=== PATIENT | female | born 1970 | race Caucasian/White ===

== ENCOUNTER 2020-09-09 22:08 | Emergency (ER) | payer BC, SELFPAY ==
--- NOTE | ~2020-09-09 | CT_ITS ---
EXAMINATION: CT abdomen pelvis w con INDICATION: Left lower quadrant pain TECHNIQUE: Computed tomographic images of the abdomen and pelvis were obtained after the administrati on of 100 cc of Omnipaque 350 intravenous contrast. The dose-length product (DLP) was 260.79 mGy-cm. Automated exposure control and iterative reconstruction technique were employed. COMPARISON: None available FINDINGS: The lung bases are clear. The heart size is normal. There is a large hiatal hernia containi ng the entire stomach. Surgical changes of the stomach likely reflect gastric bypass. Bilateral breas t implants are noted. The gallbladder is surgically absent. There is mild enlargement of the common b ile duct and central intrahepatic ducts which is likely due to post cholecystectomy state. The liver, spleen, pancreas, and adrenal glands are normal. The kidneys are unremarkable. Colonic diverticulosi s is noted. There is subtle inflammatory change of the left pelvis. There is a small amount of fluid in the endometrium. A right adnexal cyst measures up to 3.6 cm. There are phleboliths of the pelvis. A 1.8 x 1.1 cm area of fluid attenuation to the right of midline in association with the labia majora has the appearance of a Bartholin gland cyst. The appendix is normal. There is mild lumbar spondylos is. IMPRESSION: 1. Diverticulosis with possible mild sigmoid diverticulitis. 2. Large hiatal hernia with intrathoracic stomach. 3. Right adnexal cyst measuring up to 3.6 cm and small amount of fluid in the endometrium. This would be within normal limits for a reproductive age female however it the patient is postmenopausal, furt her evaluation with pelvic ultrasound is recommended. Reviewed, dictated and finalized at location A. IMPRESSION: 1. Diverticulosis with possible mild sigmoid diverticulitis. 2. Large hiatal hernia with intrathoracic stomach. 3. Right adnexal cyst measuring up to 3.6 cm and small amount of fluid in the e ndometrium. This would be within normal limits for a reproductive age female ho wever it the patient is postmenopausal, further evaluation with pelvic ultrasou nd is recommended.
[2020-09-09 22:09] VITALS: BP 125/66; PULSE 124; RESP 20; TEMP 36.3; O2SAT 99
[2020-09-09 22:48] LABS: Basophils Absolute Auto 0.2 K/mm3 (0.0-0.1); Basophils Percent Auto 1.1 % (0.2-1.2); Eosinophils Absolute Auto 0.1 K/mm3 (0-0.3); Hematocrit 33.6 % (37.0-47.0); Hemoglobin 10.3 g/dL (12.0-15.0); Immature Granulocyte Absolute 0.06 K/mm3 (0.00-0.031); Immature Granulocyte Percent A 0.4 % (0-0.5); Lymphocytes Absolute Auto 2.26 K/mm3 (0.9-3.2); Lymphocytes Percent Auto 16.4 % (18.3-44.2); Mean Corpuscular HGB Conc 30.7 g/dl (32-36); Mean Corpuscular Hemoglobin 23.6 pg (26-34); Mean Corpuscular Volume 76.9 fl (80-100); Mean Platelet Volume 9.9 fl (7.4-10.4); Neutrophils Absolute Auto 10.2 K/mm3 (1.3-6.7); Neutrophils Percent Auto 74.1 % (45.5-73.1); Platelet Count Result 385 k/mm3 (150-375); Red Blood Count 4.37 M/mm3 (4.2-5.4); Red Cell Distribution Width 18.2 % (11.5-14.5); White Blood Count 13.8 K/mm3 (4.5-10.0)
[2020-09-09] MEDS: MORPHINE SULFATE (*CRX) 4 MG/ML INJ IV PUSH (22:56)
[2020-09-09] MEDS: ONDANSETRON INJ 4 MG/2 ML VIAL IV PUSH (22:56)
[2020-09-09] MEDS: SODIUM CHLORIDE 0.9% IV 1,000 ML 999 ML IV CONT (22:56)
--- NOTE | 2020-09-09 23:00 | ED.ABDPAIN ---
HPI - Abdominal Pain General Chief Complaint: Abdominal Pain Stated Complaint: problems with my stomach for the last couple weeks Time Seen by Provider: 09/09/20 22:20 History of Present Illness HPI narrative: Patient is a 49-year-old female who presents ER with abdominal discomfort lasting for over a week. Initially she was having feeling that she needs to defecate but cannot go. Over the last few days she has developed persistent left lower quadrant abdominal pain with occasional spikes in her pain. Tonight was more severe. She reports diarrhea today as well. No fevers or chills or sweats. No chest pain or chest pressure. No nausea or vomiting. Related Data Allergies Allergy/AdvReac Type Severity Reaction Status Date / Time No Known Allergies Allergy Verified 09/09/20 22:20 Review of Systems Review of Systems: All systems reviewed & are unremarkable except as noted in HPI and below Constitutional: Constitutional: Denies chills, Denies fever(s) and Denies weakness Gastrointestinal: Gastrointestinal: Reports abdominal pain, Reports diarrhea, Denies nausea and Denies vomiting Genitourinary: Genitourinary: Denies nocturia, Denies dysuria and Denies flank pain PMFSH Past Medical History Medical History (Updated 09/10/20 @ 01:02 by Jamil Moya MD) Healthy female adult Surgical History Surgical History (Updated 09/09/20 @ 23:01 by Jamil Moya MD) H/O breast augmentation History of section History of cholecystectomy Social History Social History (Updated 09/09/20 @ 23:01 by Jamil Moya MD) Smoking status: Current every day smoker Alcohol intake: current Exam Narrative: Exam Narrative: GENERAL: Well-appearing, well-nourished, and in no acute distress. HEAD: Normocephalic, atraumatic. CHEST: Clear to auscultation. No respiratory distress. HEART: Tachycardic regular. Normal peripheral pulses. ABDOMEN: Soft, tender palpation left mid abdomen with guarding, nondistended, normal active bowel sounds. EXTREMITIES: Normal range of motion. No edema. SKIN: Warm, dry, no rash. NEURO: Alert and oriented x3. PSYCH: Normal mood and affect. Course Course Emergency Course: Patient resting comfortably. Still tachycardic. Will give second liter of fluid. She is aware of diagnosis and treatment plan. I would like to put her on Cipro and Flagyl for her colitis as I think is likely infectious given how longstanding it is. Also discussed with the patient and her distended endometrium and recommended that she follow-up with gynecology for further evaluation to rule out any cancerous process. She verbalized understanding of this. Vital Signs Vital signs: Vital Signs Temperature 97.3 F L 09/09/20 22:09 Pulse Rate 124 H 09/09/20 22:09 Respiratory Rate 20 09/09/20 22:09 Blood Pressure 125/66 09/09/20 22:09 Pulse Oximetry 99 09/09/20 22:09 Temperature 97.3 F L 09/09/20 22:09 Pulse Rate 100 09/09/20 23:51 Respiratory Rate 18 09/09/20 23:51 Blood Pressure 136/81 09/09/20 23:51 Pulse Oximetry 100 09/09/20 23:51 MDM - Abdominal Pain Lab Data Result diagrams: 09/09/20 22:28 09/09/20 22:28 Labs: Lab Results 09/09/20 09/09/20 Range/Units 22:28 22:28 WBC 13.8 H (4.5-10.0) K/mm3 RBC 4.37 (4.2-5.4) M/mm3 Hgb 10.3 L (12.0-15.0) g/dL Hct 33.6 L (37.0-47.0) % MCV 76.9 L (80-100) fl MCH 23.6 L (26-34) pg MCHC 30.7 L (32-36) g/dl RDW 18.2 H (11.5-14.5) % Plt Count 385 H (150-375) k/mm3 MPV 9.9 (7.4-10.4) fl Immature Gran % (Auto) 0.4 (0-0.5) % Neut % (Auto) 74.1 H (45.5-73.1) % Lymph % (Auto) 16.4 L (18.3-44.2) % [place] % (Auto) 7.0 (2.6-8.5) % Eos % (Auto) 1.0 (0-4.4) % Baso % (Auto) 1.1 (0.2-1.2) % Lymph # (Auto) 2.26 (0.9-3.2) K/mm3 [place] # (Auto) 1.0 H (0.1-0.6) K/mm3 Eos # (Auto) 0.1 (0-0.3) K/mm3 Baso # (Auto) 0.2 H (0.0-0.1) K/mm3 Abs Immat Gran (aut
[2020-09-09 23:01] LABS: Anion Gap 11 mmol/L (8-16); Blood Urea Nitrogen 9 mg/dL (7-17); Calcium 9.4 mg/dL (8.4-10.2); Carbon Dioxide 20 mmol/L (22-30); Chloride 105 mmol/L (98-107); Estimated CRCL calculation 66 ml/min; Estimated Glomerular Filt Rate > 60; Glucose 125 mg/dL (65-105); Sodium 136 mmol/L (137-145)
[2020-09-09 23:51] VITALS: BP 136/81; PULSE 100; RESP 18; O2SAT 100
[2020-09-10] MEDS: metroNIDAZOLE 250 MG TABLET 500 MG PO (01:02)
[2020-09-10] MEDS: CIPROFLOXACIN 500 MG TAB PO (01:02)
[2020-09-10] MEDS: SODIUM CHLORIDE 0.9% IV 1,000 ML 999 ML IV CONT (01:03)
== END 2020-09-10 01:50 | disposition home or self-care (01) ==
PROVIDERS: Emergency Provider Emergency Medicine
DX: K52.9 Noninfective gastroenteritis and colitis, unspecified (principal); N85.8 Other specified noninflammatory disorders of uterus
CPT/HCPCS: 36415; 74177; 80048; 85025; 96361; 96374; 96375; 99284; A9270; J2270; J2405; J7030; Q9967

== ENCOUNTER 2020-10-29 14:09 | Outpatient (CLI) | payer BC, SELFPAY ==
--- NOTE | ~2020-10-29 | US_ITS ---
EXAMINATION: US pelvic complete w TV EXAM DATE: 10/29/2020 15:02 INDICATION: N83.209 - Unspecified ovarian cyst, unspecified side . TECHNIQUE: Pelvic transabdominal and transvaginal sonogram was performed. There are multiple graysca le and Doppler images available for interpretation. Correlation is made to CT abdomen pelvis 09/09/2020 . FINDINGS: Uterus measures 4.1 x 4.3 x 7.2 cm, with poorly visualized endometrial stripe, and slightl y hyperechoic ill-defined region in the central aspect of the fundus measuring about 2 cm. Could be a bnormally thickened endometrium or a fibroid. There is a nabothian cyst. There is no free pelvic fl uid. Right adnexa: The ovary measures 2.7 x 3.2 x 2.6 cm and is morphologically normal. Ovarian vascular f low confirmed. Left adnexa: The ovary measures 2.5 x 2.4 x 1.4 cm and is morphologically normal. Ovarian vascular fl ow confirmed. IMPRESSION: 1. Ill-defined endometrial region, could be from fibroid or abnormal thickening; endometrial cancer not excludable sonographically. Could consider 6 week follow-up exam or histologic correlation. 2. Unremarkable ovaries. Reviewed, dictated and finalized at location A. IMPRESSION: 1. Ill-defined endometrial region, could be from fibroid or abnormal thickenin g; endometrial cancer not excludable sonographically. Could consider 6 week f ollow-up exam or histologic correlation. 2. Unremarkable ovaries.
== END 2020-10-29 14:10 | disposition home or self-care (01) ==
PROVIDERS: Visit Provider Obstetrics & Gynecology
DX: N83.209 Unspecified ovarian cyst, unspecified side (principal); R10.2 Pelvic and perineal pain
CPT/HCPCS: 76830; 76856

== ENCOUNTER → 2021-01-25 02:29 | Outpatient (CLI) | payer BC, SELFPAY ==
[2021-01-25 16:36] LABS: SARS-CoV-2 RNA PCR Negative
== END ==
PROVIDERS: Visit Provider Obstetrics & Gynecology
DX: Z01.812 Encounter for preprocedural laboratory examination (principal); Z20.822 Contact with and (suspected) exposure to COVID-19
CPT/HCPCS: C9803; U0003; U0005

== ENCOUNTER 2021-01-28 01:00 | Day surgery (SDC) | payer BC, SELFPAY ==
[2021-01-23 13:19] VITALS: BMI 27.4
--- NOTE | 2021-01-23 13:46 | PC.NURSE ---
Report to the Outpatient Waiting Room, entrance under the green pavilion located off [facility], at time 1000 on date 01-28-21. OR Time: 1200. - You and your visitor will be asked a series of questions to screen for COVID 19 for your protection. - A mask is required within the hospital. - Only one visitor is allowed at this time. Patient visitors will be guided where to wait when not with patient. Preoperative COVID Testing Requirements: No COVID Test needed if: (proof is required; if not received patient will have Rapid Test prior to entry) - Patient has received COVID Vaccine at least 14 days prior to procedure date or - Patient has positive COVID test result within last 90 days of surgery date. COVID Test needed if above criteria is not met If not COVID vaccinated a COVID test must be conducted within 72 hours of surgery and patient is asked to isolate self from time of testing until procedure. You will go to the [facility] for your COVID testing. The [facility] site is located at the corner of [address] [facility]. You will only be called if COVID results are positive and your surgeon may reschedule your elective surgery date. Covid Test: 01-25 @ 0845 Patients may have clear liquids (water, carbonated beverages, clear teas, apple juice) until 3 hours prior to surgery with a maximum of 20 ounces. 0900 - No food from midnight until time of surgery - Infants may have breast milk until 4 hours before surgery, formula 6 hours prior to surgery. - Children will be allowed to drink immediately following surgery. If applicable, please bring a bottle or sippy cup to assist with drinking. Juice, water, soda, and popsicles are readily available. For infants on formula, please bring formula the day of surgery. Pacifiers are allowed. Take the following medications with a SIP of water the morning of surgery: venlafaxine, control Medications to discontinue per physician: N/A Date to take last dose N/A Please no make-up, nail khmer, hairspray, perfume, deodorant, or body powder the day of surgery. No jewelry (including any body piercings) or valuables the day of surgery, leave them at home. Please take a shower or bath the night before, or the morning of, surgery with an antibacterial soap. Wear comfortable, loose fitting clothing. Children are encouraged to wear pajamas. - Jewelry must be removed prior to entering the operating room. Rings and piercings that are not removed may be cut off. - The hospital will not accept responsibility for valuables. - Please leave all valuables, including medications, at home the day of surgery. If you are going home after surgery, a licensed race car driver must drive you home. - NO public transportation without another adult. - We recommend that an adult stay with you for 24 hours following discharge. - We also recommend that you do not drive, make important decision, drink alcoholic beverages, or take any drugs that were not prescribed by your health care provider for at least 24 hours after your discharge time. For Pediatric surgeries, we recommend two adults accompany the child home (only one inside the building at this time). Follow any additional instructions given to you from your surgeon. Telephone instructions given to Loraine Ly and asked if any additional questions and then verbalized understanding. Patient advised to call surgeon office or pre surgery nurse liaison [phone] if any additional questions.
--- NOTE | 2021-01-24 10:46 | PM.IMHP ---
H&P: HPI History of Present Illness Date/Time: 01/24/21 10:46 She has irregular periods, which worsened on progestin only pills. She is still spotting irregularly off POP. EMBX showed endometrial polyp Chief Complaint: Irregular bleeding,, endometrial polyp Review of Systems Review of Systems: All systems reviewed & are unremarkable except as noted in HPI and below PMFSH Past Medical History Medical History Chronic GERD Depression with anxiety History of colitis IBS (irritable bowel syndrome) Surgical History Surgical History H/O breast augmentation History of breast lift History of section History of cholecystectomy History of intestinal surgery History of tubal ligation Family History Family History Mother Hypertension Depression Heart disease Sibling Hypertension Grandparent Heart disease Depression Cancer Social History Social History Smoking packs per day: 0.5 Smoking cigarettes per day: 10.0 Years smoked: 8 Smoking pack-years: 4.00 Smoking status: Current every day smoker Tobacco type: cigarettes Second hand tobacco smoke exposure: No (significant other smokes also) Alcohol intake: current Drinks per week: 6 Alcohol use details: beer Substance use: never Substance use type: does not use Additional living arrangements comments: Lives w/ Significant Other Spiritual care concerns: No Meds Home Medications and Allergies Home Medications Medication Instructions Recorded Confirmed Type omeprazole 40 mg capsule,delayed 40 mg PO DAILY 09/21/20 01/23/21 History release norethindrone (contraceptive) 0.35 0.35 mg PO DAILY #84 tablet 12/07/20 01/23/21 Rx mg tablet venlafaxine 150 mg tablet,extended 150 mg PO DAILY #90 tablet 12/07/20 01/23/21 Rx release 24 hr Allergies Allergy/AdvReac Type Severity Reaction Status Date / Time No Known Allergies Allergy Verified 01/23/21 13:37 Exam Const: General: healthy appearing, no acute distress, alert and awake Resp: Auscultation: clear to auscultation bilaterally Cardio: Rate: regular rate Rhythm: regular rhythm GI: Inspection: non-distended GI Palp: Yes Soft to palpation and No Tenderness to palpation present (GI) : Bimanual exam- vagina & uterus: normal bimanual exam, uterine size normal, uterine mobility normal, non-tender and soft Bimanual Exam- Adnexa, other: normal adnexae, no masses and No adnexal tenderness Extrem: General: no pedal edema and no calf tenderness Psych: Mental Status: mental status grossly normal Assessment and Plan Assessment and plan (1) Menometrorrhagia: Code(s): N92.1 - Excessive and frequent menstruation with irregular cycle Status: Acute Assessment and Plan: She signed consent after risks, benefits, complications, and alternatives discussed for D&C, hysteroscopy, possible endometrial polypectomy, and endometrial ablation. She expressed understanding and wishes to proceed. She is s/p bilateral salpingectomy for contraception (2) Endometrial polyp: Code(s): N84.0 - Polyp of corpus uteri Status: Acute
[2021-01-28 10:23] VITALS: BP 134/85; PULSE 117; RESP 16; TEMP 36; O2SAT 100
[2021-01-28] MEDS: ACETAMINOPHEN 500 MG TABLET 1000 MG PO (10:43)
--- NOTE | 2021-01-28 11:04 | WPDANESEPPF ---
Anes - Initial Pre Proc Eval Procedure: Operation Date: 01/28/21 12:00 Proposed Procedures p Hysteroscopy Dilation and Curettage, Fern Endometrial Ablation, Possible Endometrial Polypectomy - Zita Gonzalez MD Date/Time: 01/28/21 11:04 Surgeon: Zita Gonzalez MD Pre Op Diagnosis: menometrohaghia, endometrial polyp Patient Data Age: 50 Gender: F Height: 1.57 m Weight: 67.7 kg Last Vital Signs Temp 36.0 C L 01/28/21 10:23 Pulse 117 H 01/28/21 10:23 Resp 16 01/28/21 10:23 BP 134/85 01/28/21 10:23 Pulse Ox 100 01/28/21 10:23 Allergies Allergy/AdvReac Type Severity Reaction Status Date / Time No Known Allergies Allergy Verified 01/28/21 10:39 Home Medications Medication Instructions Recorded Confirmed Type omeprazole 40 mg capsule,delayed 40 mg PO DAILY 09/21/20 01/28/21 History release norethindrone (contraceptive) 0.35 0.35 mg PO DAILY #84 tablet 12/07/20 01/28/21 Rx mg tablet venlafaxine 150 mg tablet,extended 150 mg PO DAILY #90 tablet 12/07/20 01/28/21 Rx release 24 hr Patient hx anesthesia problems: none Family hx anesthesia problems: none Results Review: All pre-operative results and documents have been reviewed as part of the pre-operative evaluation. [facility] Past Medical History Medical History Chronic GERD Depression with anxiety History of colitis IBS (irritable bowel syndrome) Surgical History Surgical History H/O breast augmentation History of breast lift History of section History of cholecystectomy History of intestinal surgery History of tubal ligation Family History Family History Mother Hypertension Depression Heart disease Sibling Hypertension Grandparent Heart disease Depression Cancer Social History Social History Smoking packs per day: 0.5 Smoking cigarettes per day: 10.0 Years smoked: 8 Smoking pack-years: 4.00 Smoking status: Current every day smoker Tobacco type: cigarettes Second hand tobacco smoke exposure: No (significant other smokes also) Alcohol intake: current Drinks per week: 6 Alcohol use details: beer Substance use: never Substance use type: does not use Living arrangements: other Additional living arrangements comments: Lives w/ Significant Other Spiritual care concerns: No Anes - Eval Final PreProcedure Day of Procedure 01/28/21 11:04 Patient weight: overweight Heart: regular rate and rhythm Lungs: clear to auscultation Last oral intake: >/= 8 hours ASA classification: II Emergent: no Anesthetic plan: proceed Anesthesia type and monitoring: general GIVS and standard monitoring Results Review: All pre-operative results and documents have been reviewed as part of the pre-operative evaluation. Informed Consent: The patient's anesthetic plan and its attendant risks and benefits were discussed with the patient/family/POA. Questions were solicited and answers provided to the satisfaction of the patient/family/POA.
[2021-01-28] MEDS: LACTATED RINGERS 1,000 ML 30 ML IV CONT (11:05)
--- NOTE | 2021-01-28 11:11 | WPDHPUPDATE1 ---
History and Physical Update Update Date/Time: 01/28/21 11:11 History and Physical has been reviewed, including an updated exam of the patient. There are NO changes in the patient's condition. Risks, benefits, and alternatives have been discussed and questions answered. Patient agrees to proceed with procedure.
--- NOTE | 2021-01-28 11:39 | W.PM.PROC2 ---
Procedure Note - Detailed Date of Procedure 01/28/21 Pre-op Diagnosis menometrorrhagia, endometrial polyp Post-op Diagnosis other (menometrorrhagia) Procedure Performed D&C, hysteroscopy, Fern endometrial ablation Surgeon Zita Gonzalez MD Anesthesia MAC Indications heavy irregular periods, not responsive to POP. Endometrial polyp on EMBX Findings normal endometrial cavity Description of Procedure She was taken to the operating room where she was sedated and placed in the dorsal lithotomy position. A speculum was placed in the vagina. The anterior lip of the cervix was grasped with single-tooth tenaculum. The uterus sounded to 8.5 cm. Cervix was dilated to allow passage of the hysteroscope, which revealed a normal endometrial cavity with both tubal ostia identified and no endometrial polyp visualized. A sharp curettage was performed the curettings sent for pathologic evaluation. 8. Hegar dilator was used to measure the endocervical canal at 3.5 cm, yielding entire cavity length of 5 cm. The Fern device was introduced. The cavity assessment passed on the 1st attempt. The cycle ran for 2 minutes. The Fern device was removed. The hysteroscope was reintroduced. An excellent appearing ablation was visualized. The hysteroscope was removed. The tenaculum was removed from the cervix. Both tenaculum sites were bleeding slightly, so pressure was held with ring forceps and Allis clamp until excellent hemostasis was assured. All instruments were removed from the vagina. She tolerated procedure well. Sponge, lap, and instrument counts were correct x2. She was taken to the recovery room in stable condition. Estimated Blood Loss 10 Drains No Packing No Pathology yes Complications No immediate complications Condition stable Disposition PACU
[2021-01-28 12:55] VITALS: BP 123/74; PULSE 86; RESP 16; O2SAT 94
[2021-01-28] MEDS: fentaNYL CITRATE INJ (*CRX) 100 MCG/2 ML VIAL 25 MCG IV PUSH ×3 (13:13→13:50)
[2021-01-28 13:25] VITALS: BP 139/74; PULSE 80; RESP 16
[2021-01-28 14:00] VITALS: BP 151/90; PULSE 76; RESP 16
[2021-01-28] MEDS: oxyCODONE HCL (*CRX) 5 MG TAB IR PO (14:05)
== END 2021-01-28 14:45 | disposition home or self-care (01) ==
PROVIDERS: Visit Provider Obstetrics & Gynecology
PROC: 0U5B8ZZ Destruction of Endometrium, Via Natural or Artificial Opening Endoscopic (ICD-10-PCS; CPT 58563; principal; 2021-01-28 12:00)
DX: N92.1 Excessive and frequent menstruation with irregular cycle (principal); N85.8 Other specified noninflammatory disorders of uterus; K21.9 Gastro-esophageal reflux disease without esophagitis; F41.8 Other specified anxiety disorders; K58.9 Irritable bowel syndrome, unspecified; F17.210 Nicotine dependence, cigarettes, uncomplicated
CPT/HCPCS: 58563; 88305; A9270; J1100; J2250; J2405; J2704; J3010; J7030; J7120

== ENCOUNTER 2021-05-11 19:58 | Emergency (ER) | payer BC, SELFPAY ==
--- NOTE | ~2021-05-11 | CT_ITS ---
EXAMINATION: CT orbit BI w con DATE: 05/11/2021 21:59 INDICATION: Right orbital pain. TECHNIQUE: Computed tomography (CT) of the orbits was performed with 75 mL Omnipaque 350 intravenous contrast. Automated exposure control and iterative reconstruction technique were employed. The dose-l ength product was 174.80 mGy-cm. COMPARISON: None. FINDINGS: There is rightward deviation of the nasal septum. No fracture. The paranasal sinuses are cl ear. There is increased density throughout the posterior chamber of right ocular globe. The extra-axi al muscles are normal. IMPRESSION: 1. Increased density throughout the posterior chamber of right ocular globe. By report, the patient h as a diagnosis of malignancy. Given this history, the imaging findings suggest melanoma. Reviewed, dictated and finalized at location A. [employer] AD[employer]ER IMPRESSION: 1. Increased density throughout the posterior chamber of right ocular globe. By report, the patient has a diagnosis of malignancy. Given this history, the sherif ging findings suggest melanoma.
[2021-05-11 20:02] VITALS: BP 119/93; PULSE 88; RESP 17; TEMP 36.4; O2SAT 100
[2021-05-11] MEDS: MORPHINE SULFATE (*CRX) 4 MG/ML INJ IV PUSH (20:30)
--- NOTE | 2021-05-11 20:31 | ED.HA ---
HPI - Headache General Chief Complaint: Headache Stated Complaint: Headache, new diagnosis of eye cancer Time Seen by Provider: 05/11/21 20:00 Source: patient History of Present Illness HPI Narrative: Patient presents with headache. 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 Melton ophthalmology with while she was told she has a malignancy in her eye. She was initially doing well but last night developed right eye pain and orbit pain. The pain is sharp, constant, no radiation, no clear aggravating or alleviating factors. Related Data Home Medications Medication Instructions Recorded Confirmed omeprazole 40 mg capsule,delayed 40 mg PO DAILY 09/21/20 01/28/21 release Allergies Allergy/AdvReac Type Severity Reaction Status Date / Time No Known Allergies Allergy Verified 01/28/21 10:39 Review of Systems Review of Systems: CONSTITUTIONAL: Denies fever, chills, or sweats. EYES: Denies visual changes, redness, or discharge. ENT: Denies rhinorrhea, congestion, sore throat, or otalgia. CARDIOVASCULAR: Denies chest pain, palpitations, or edema. RESPIRATORY: Denies cough or dyspnea. GASTROINTESTINAL: Denies abdominal pain, nausea, vomiting, or diarrhea. GENITOURINARY: Denies dysuria or hematuria. SKIN: Denies rash or itching. MUSCULOSKELETAL: Denies back pain, joint pain, or myalgia. NEUROLOGIC: Denies headache, numbness, dizziness, or weakness. PSYCHIATRIC: Denies anxiety or depression. All systems reviewed & are unremarkable except as noted in HPI and below PMFSH Past Medical History Medical History Chronic GERD Depression with anxiety History of colitis IBS (irritable bowel syndrome) Surgical History Surgical History H/O breast augmentation History of breast lift History of section History of cholecystectomy History of intestinal surgery History of tubal ligation Family History Family History Mother Hypertension Depression Heart disease Sibling Hypertension Grandparent Heart disease Depression Cancer Social History Social History Smoking packs per day: 0.5 Smoking cigarettes per day: 10.0 Years smoked: 8 Smoking pack-years: 4.00 Smoking status: Current every day smoker Tobacco type: cigarettes Second hand tobacco smoke exposure: No (significant other smokes also) Alcohol intake: current Drinks per week: 6 Alcohol use details: beer Substance use: never Substance use type: does not use Additional living arrangements comments: Lives w/ Significant Other Spiritual care concerns: No Exam Narrative: GENERAL: Well-appearing, well-nourished, and in no acute distress. HEAD: Normocephalic, atraumatic. EYES: Left pupil reacts right pupil is nonreactive and dilated and EOMI. there is no fluorescein uptake on Robb lamp exam the intraocular pressures is 17 on the left and 67 on the right ENT: Nares clear, no rhinorrhea or epistaxis. Mucous membranes moist. NECK: Supple. No masses. No JVD EXTREMITIES: Normal range of motion. No edema. SKIN: Warm, dry, no rash. NEURO: No focal deficits. Alert and oriented x3. PSYCH: Normal mood and affect. Course Reevaluation(s) Reevaluation #1: Patient reports feeling much improved. Date: 05/11/21 Time: 22:58 Consultations Consultation #1: Attempting to contact ophthalmology at [facility] regarding elevated IOP's Date: 05/11/21 Time: 20:30 Vital Signs Vital signs: Vital Signs Temperature 36.4 C 05/11/21 20:02 Pulse Rate 88 05/11/21 20:02 Respiratory Rate 17 05/11/21 20:02 Blood Pressure 119/93 H 05/11/21 20:02 Pulse Oximetry 100 05/11/21 20:02 Temperature 36.4 C 05/11/21 20:02 Pulse Rate 76 05/11/21 22:53 Respiratory Rate 17 05/11/21 2
[2021-05-11 20:49] LABS: Basophils Absolute Auto 0.1 K/mm3 (0.0-0.1); Basophils Percent Auto 0.7 % (0.2-1.2); Eosinophils Absolute Auto 0.1 K/mm3 (0-0.3); Eosinophils Percent Auto 0.6 % (0-4.4); Hematocrit 30.8 % (37.0-47.0); Hemoglobin 9.1 g/dL (12.0-15.0); Immature Granulocyte Absolute 0.06 K/mm3 (0.00-0.031); Immature Granulocyte Percent A 0.5 % (0-0.5); Lymphocytes Absolute Auto 1.39 K/mm3 (0.9-3.2); Mean Corpuscular HGB Conc 29.5 g/dl (32-36); Mean Corpuscular Hemoglobin 23.5 pg (26-34); Mean Corpuscular Volume 79.6 fl (80-100); Mean Platelet Volume 9.4 fl (7.4-10.4); Monocytes Absolute Auto 0.5 K/mm3 (0.1-0.6); Monocytes Percent Auto 3.9 % (2.6-8.5); Neutrophils Absolute Auto 10.5 K/mm3 (1.3-6.7); Neutrophils Percent Auto 83.3 % (45.5-73.1); Platelet Count Result 453 k/mm3 (150-375); Red Blood Count 3.87 M/mm3 (4.2-5.4); Red Cell Distribution Width 18.8 % (11.5-14.5); White Blood Count 12.6 K/mm3 (4.5-10.0)
[2021-05-11] MEDS: FLUORESCEIN SOD 1 MG/STRIP EACH EYE (20:59)
[2021-05-11] MEDS: TETRACAINE HCL 0.5% OPHTH SOLN 4 ML BTL 1 DROP EACH EYE (20:59)
[2021-05-11 21:01] LABS: Alanine Aminotransferase 18 U/L (4-35); Albumin Level 4.1 g/dL (3.5-5.1); Alkaline Phosphatase 88 U/L (38-126); Anion Gap 8 mmol/L (8-16); Aspartate Amino Transferase 28 U/L (14-36); Bilirubin,Total 0.4 mg/dL (0.2-1.3); Blood Urea Nitrogen 7 mg/dL (7-17); Calcium 8.6 mg/dL (8.4-10.2); Carbon Dioxide 22 mmol/L (22-30); Chloride 105 mmol/L (98-107); Estimated CRCL calculation 88 ml/min; Estimated Glomerular Filt Rate > 60; Glucose 124 mg/dL (65-110); Potassium 4.2 mmol/L (3.4-5.0); Sodium 135 mmol/L (137-145)
[2021-05-11 21:05] LABS: Prothrombin Time 12.8 Seconds (11.1-14.7)
[2021-05-11 21:06] LABS: Partial Thromboplastin Time 23.8 SECONDS (22.3-36.8)
[2021-05-11 21:09] LABS: Hypochromasia 1+ (NORMAL); Platelet Estimate Increased (Adequate)
[2021-05-11 21:10] LABS: Anisocytosis 2+ (NORMAL)
[2021-05-11] MEDS: acetaZOLAMIDE SODIUM FOR INJ 500 MG VIAL IV PUSH (21:18)
[2021-05-11] MEDS: BRIMONIDINE TARTRATE 0.2% OP SOLN 5 ML BTL 1 DROP RIGHT EYE ×4 (21:19→22:21)
[2021-05-11 22:53] VITALS: BP 148/95; PULSE 76; RESP 17; O2SAT 97
== END 2021-05-11 23:08 | disposition home or self-care (01) ==
PROVIDERS: Emergency Provider Emergency Medicine
DX: H57.11 Ocular pain, right eye (principal); C69.91 Malignant neoplasm of unspecified site of right eye; K21.9 Gastro-esophageal reflux disease without esophagitis; K58.9 Irritable bowel syndrome, unspecified; F17.210 Nicotine dependence, cigarettes, uncomplicated
CPT/HCPCS: 36415; 70481; 80053; 85025; 85610; 85730; 96374; 96375; 99284; A9270; J1120; J2270; Q9967

== ENCOUNTER 2021-06-04 12:41 | Outpatient (CLI) | payer BC, SELFPAY ==
[2021-06-04 13:47] LABS: Iron 26 ug/dL (37-170)
[2021-06-04 13:58] LABS: Percent Iron Saturation 5 % (20-50)
[2021-06-04 14:01] LABS: Free T4 Free Thyroxine 1.15 ng/mL (0.78-2.19)
[2021-06-04 14:26] LABS: Folic Acid 8.2 ng/mL (2.76->20)
== END 2021-06-04 12:42 | disposition home or self-care (01) ==
LOC: ANHLAB 12:43
PROVIDERS: PCP Nurse Practitioner; Visit Provider Nurse Practitioner
DX: R53.83 Other fatigue (principal); D64.9 Anemia, unspecified
CPT/HCPCS: 36415; 82607; 82746; 83540; 83550; 84439; 84443

== ENCOUNTER 2021-07-23 01:16 | Day surgery (SDC) | payer BC, SELFPAY ==
[2021-07-11 11:14] VITALS: BMI 29.0
--- NOTE | 2021-07-23 10:13 | WPDHPUPDATE1 ---
History and Physical Update Update Date/Time: 07/23/21 10:13 History and Physical has been reviewed, including an updated exam of the patient. There are NO changes in the patient's condition. Risks, benefits, and alternatives have been discussed and questions answered. Patient agrees to proceed with procedure.
[2021-07-23] MEDS: LACTATED RINGERS 1,000 ML 150 ML IV CONT (10:33)
[2021-07-23 10:39] VITALS: BP 128/91; PULSE 110; RESP 18; TEMP 35.9; O2SAT 100
--- NOTE | 2021-07-23 10:53 | WPDANESEPPF ---
Anes - Initial Pre Proc Eval Procedure: Operation Date: 07/23/21 12:30 Proposed Procedures p Esophagogastroduodenoscopy & Colonoscopy - Binh Woodruff MD Date/Time: 07/23/21 10:53 Surgeon: Binh Woodruff MD Pre Op Diagnosis: DEWAYNE Patient Data Age: 50 Gender: F Height: 1.57 m Weight: 69.7 kg Last Vital Signs Temp 96.7 F L 07/23/21 10:39 Pulse 110 H 07/23/21 10:39 Resp 18 07/23/21 10:39 BP 128/91 H 07/23/21 10:39 Pulse Ox 100 07/23/21 10:39 Allergies Allergy/AdvReac Type Severity Reaction Status Date / Time No Known Allergies Allergy Verified 07/23/21 10:36 Home Medications Medication Instructions Recorded Confirmed Type ibuprofen 600 mg PO Q6H PRN #60 tablet 01/28/21 07/11/21 Rx omeprazole 40 mg capsule,delayed 40 mg PO DAILY #90 cap 05/29/21 07/11/21 Rx release ferrous sulfate 325 mg (65 mg 325 mg PO BID #60 tablet 06/04/21 07/11/21 Rx iron) tablet mecobalamin (vitamin B12) 1,000 3,000 mcg SUBLINGUAL DAILY tablet 07/02/21 07/11/21 History mcg disintegrating tablet,sublingual venlafaxine 150 mg tablet,extended 150 mg PO DAILY #90 tablet 07/11/21 Rx release 24 hr Patient hx anesthesia problems: none Family hx anesthesia problems: none Results Review: All pre-operative results and documents have been reviewed as part of the pre-operative evaluation. [facility] Past Medical History Medical History (Updated 07/02/21 @ 13:44 by HENRI Licea) Chronic GERD Depression with anxiety Hiatal hernia History of colitis IBS (irritable bowel syndrome) Melanoma of eye Surgical History Surgical History H/O breast augmentation History of bariatric surgery History of breast lift History of section History of cholecystectomy History of endometrial ablation History of eye removal History of intestinal surgery History of tubal ligation Family History Family History Mother Hypertension Depression Heart disease Sibling Hypertension Grandparent Heart disease Depression Cancer Carcinoma of colon Social History Social History Smoking packs per day: 0.5 Smoking cigarettes per day: 10.0 Years smoked: 8 Smoking pack-years: 4.00 Smoking status: Current some day smoker Tobacco type: cigarettes Second hand tobacco smoke exposure: Yes (significant other smokes also) Alcohol intake: current Drinks per week: 6 Alcohol use details: beer Substance use: never Substance use type: does not use Living arrangements: with family Additional living arrangements comments: Lives w/ Significant Other Gender identity (if verbalized by the patient): Female Sexual Orientation (if Verbalized by the Patient): Straight or Heterosexual Spiritual care concerns: No Anes - Eval Final PreProcedure Day of Procedure 07/23/21 10:53 Patient weight: overweight Heart: regular rate and rhythm Lungs: clear to auscultation Airway: Mallampati scale class II Neurological: alert and oriented Last oral intake: >/= 8 hours ASA classification: III Emergent: no Anesthetic plan: proceed Anesthesia type and monitoring: general GIVS and standard monitoring Results Review: All pre-operative results and documents have been reviewed as part of the pre-operative evaluation. Informed Consent: The patient's anesthetic plan and its attendant risks and benefits were discussed with the patient/family/POA. Questions were solicited and answers provided to the satisfaction of the patient/family/POA.
--- NOTE | 2021-07-23 11:01 | SUR.OPER ---
EGD start 1058 end 1102, Colonoscopy start 1106 end 1119.
[2021-07-23 11:21] VITALS: BP 104/56; PULSE 88; RESP 24; O2SAT 99
[2021-07-23 11:31] VITALS: BP 106/46; PULSE 83; RESP 18; O2SAT 98
[2021-07-23 11:41] VITALS: BP 118/97; PULSE 82; RESP 15; O2SAT 100
== END 2021-07-23 11:46 | disposition home or self-care (01) ==
PROVIDERS: PCP Nurse Practitioner; Visit Provider Internal Medicine Gastroenterology
PROC: 0DJ08ZZ Inspection of Upper Intestinal Tract, Via Natural or Artificial Opening Endoscopic (ICD-10-PCS; CPT 43235; principal; 2021-07-23 12:30)
DX: D50.9 Iron deficiency anemia, unspecified (principal); D12.0 Benign neoplasm of cecum; K64.8 Other hemorrhoids; K57.30 Diverticulosis of large intestine without perforation or abscess without bleeding; Z80.0 Family history of malignant neoplasm of digestive organs; Z98.84 Bariatric surgery status; K58.9 Irritable bowel syndrome, unspecified; K21.9 Gastro-esophageal reflux disease without esophagitis; F41.8 Other specified anxiety disorders; F17.210 Nicotine dependence, cigarettes, uncomplicated; Z85.840 Personal history of malignant neoplasm of eye
CPT/HCPCS: 45385; 43235; 88305; J2704; J7120

== ENCOUNTER 2021-08-14 12:26 | Outpatient (CLI) | payer BC, SELFPAY ==
--- NOTE | ~2021-08-14 | CT_ITS ---
EXAMINATION: CT chest abdomen pelvis wo con DATE: 08/14/2021 12:45 INDICATION: Malignant melanoma nearby. Three-month follow-up. TECHNIQUE: Computed tomography (CT) of the chest, abdomen, and pelvis was performed without intraveno us contrast. Automated exposure control and iterative reconstruction technique were employed. Exam do se: 536.01 mGy-cm total exam DLP. COMPARISON: 09/2020 CT abdomen pelvis FINDINGS: CHEST CT: The lungs are clear of infiltrate or consolidation. No pulmonary mass lesion. Bilateral breast implants. Normal heart size. No pericardial effusion. No hilar or mediastinal mass lesion or lymphadenopathy. There is a large hiatal hernia containing most of the stomach. There is postoperative change of the s tomach, presumably gastric bypass surgery. Status post cholecystectomy. No hepatic, splenic, pancreatic, and adrenal or renal space-occupying ma ss lesion is evident. Normal caliber of the abdominal aorta. No intraperitoneal or retroperitoneal or pelvic mass lesion or adenopathy or ascites. The urinary bladder, uterus and adnexal areas are unremarkable. Scattered diverticula of the left colon; no CT evidence of diverticulitis. No bowel obstruction, liseth l wall thickening, pneumatosis or intraperitoneal free air is evident. Normal appendix. Small fat-containing umbilical hernia. No suspicious osteolytic or osteoblastic lesions are noted. ABDOMEN/PELVIS CT: Severe degenerative disc disease at the lower cervical spine. There is mild degenerative change of th e thoracic and lumbar spine, including prominent degenerative change at the apophyseal joints with as sociated grade 1 anterolisthesis at L4-5, moderately severe degenerative disc disease at L5-S1 IMPRESSION: Hiatal hernia with intrathoracic stomach; postoperative change of the stomach Bilateral breast implants Status post cholecystectomy Diverticulosis of left colon; no evidence of diverticulitis Normal appendix Reviewed, dictated and finalized at [facility]. Reviewed, dictated and finalized at [facility].
== END 2021-08-14 12:27 | disposition home or self-care (01) ==
LOC: ANHIMG 12:27
PROVIDERS: PCP Nurse Practitioner; Visit Provider Internal Medicine
DX: C43.8 Malignant melanoma of overlapping sites of skin (principal); M47.817 Spondylosis without myelopathy or radiculopathy, lumbosacral region; K44.9 Diaphragmatic hernia without obstruction or gangrene; K57.30 Diverticulosis of large intestine without perforation or abscess without bleeding
CPT/HCPCS: 71250; 74176